=== PATIENT | male | born 1975 | race Caucasian/White ===

== ENCOUNTER 2018-11-07 16:43 | Inpatient (IN) ==
[2018-11-07 17:20] LABS: Mean Corpuscular Hemoglobin 21.8 pg (28.0-33.3); Nucleated Red Blood Cells 0.4 /100 WBC (0)
[2018-11-07 17:22] LABS: Basophils % 0.3 %; Eosinophils # 0.2 K/mcL (0.0-0.6); Eosinophils % 2.8 %; Hematocrit 36.9 % (37.5-50.1); Hemoglobin 10.9 g/dL (12.9-16.9); Immature Granulocytes % 0.3 % (0-4); Immature Platelets 3.1 % (1.1-6.1); Lymphocytes # 1.9 K/mcL (0.6-4.6); Mean Corpuscular HGB Conc 29.5 g/dL (31.6-35.5); Mean Corpuscular Volume 73.9 fL (83.0-100.0); Mean Platelet Volume 9.9 fL (9.4-12.4); Monocytes # 0.9 K/mcL (0.0-1.3); Monocytes % 12.5 %; Neutrophils # 4.1 K/mcL (1.6-8.9); Platelet Count 246 K/mcL (140-400); Red Blood Count 4.99 M/mcL (4.19-5.50); Segmented Neutrophils % 57.1 %
[2018-11-07] MEDS ORDERED: Ondansetron 4 MG/2 ML VIAL IVP ONE (17:28)
[2018-11-07] MEDS ORDERED: *HR* HYDROmorphone (PF) 1 MG/ML SYRINGE IVP ONE ×2 (17:28→23:43)
--- NOTE | 2018-11-07 17:34 | Emergency Department Note ---
Disposition Clinical Impression: Infected surgical wound Disposition: Still a Patient Condition: Fair Referrals: Ava Savage CNP [Primary Care Provider] - Forms: ED Satisfaction Letter, Work/School Release General Adult HPI - General Chief complaint: ED General Medical Stated complaint: infected Surg. Site Time Seen by Provider: 11/07/18 16:50 Source: patient Mode of arrival: ambulatory Limitations: no limitations - History of Present Illness HPI Narrative: Skylar Jeronimo is a 43 y/o male presenting for infection of surgical site. He has a past medical history of pulmonary embolus after surgery 8 months ago is currently on Coumadin, hypertension, hyperlipidemia, PTSD, low testosterone and diverticulitis currently on second week of Cipro and Flagyl. 8 days ago the patient's left lower extremity was cut by a piece of sheet metal. At that time he presented to [facility] and the wound was irrigated, sutured, and he was given a tetanus shot. Yesterday the patient began to have increasing pain as well as erythema around the wound. He has been taking Tylenol which helped at first, but is now not having affect. The patient states that the pain is circumferential around his calf, rated 6 out of 10 and ranges from several inches above the wound down to the toes. The pain is described as aching and stabbing and worsened with walking. It is longer alleviated by anything. The patient also admits to nausea, as well as abdominal pain and diarrhea from the diverticulitis. He denies fever, chills, vision changes, hearing changes, syncope, chest pain, shortness of breath, constipation, dysuria, joint pain. Pain Scale: 6 - Related Data Home Medications Medication Instructions Recorded Confirmed Abdek Multivitamin Softgel 11/07/18 Bystolic 11/07/18 Cipro 11/07/18 Fenofibrate 11/07/18 Flagyl 11/07/18 Klonopin 11/07/18 Rexulti 11/07/18 Vitamin D 11/07/18 Allergies Allergy/AdvReac Type Severity Reaction Status Date / Time trazodone AdvReac Shakiness Verified 11/07/18 15:43 Review of Systems: As Per HPI Constitutional: Denies: fever, chills, weakness, weight change Eyes: Denies: eye pain, vision change ENT ED: Denies: ear pain, hearing loss, congestion Cardiovascular: Denies: chest pain, palpitations, dyspnea on exertion, syncope Respiratory: Denies: cough, dyspnea, wheezes, hemoptysis, sputum production Gastrointestinal: Reports: abdominal pain, nausea, diarrhea. Denies: vomiting, constipation, hematemesis, melena, hematochezia Genitourinary: Denies: urgency, dysuria, frequency, hematuria Musculoskeletal: Denies: back pain, neck pain, joint swelling Integumentary: Reports: lesions. Denies: rash, abrasion Neurological: Denies: headache, weakness, numbness, paresthesias, confusion, abnormal gait Psychiatric: Denies: anxiety, depression Endocrine: Denies: fatigue, heat or cold intolerance Hematological/Lymphatic: Reports: easy bleeding. Denies: easy bruising Allergic/Immunologic: Denies: facial swelling, urticaria Past Medical History - Past Medical History Medical history: Reports: hypertension Psychiatric history: Reports: PTSD - Social History Smoking Status: Never smoker Smokeless Tobacco Status: No Alcohol use: Reports: rarely Drug use: Reports: none Physical Exam Gen.: Vitals noted. Moderate distress, diaphoretic. AAOx3, resting comfortably in bed. HEENT: PERRL/EOMI, oropharynx clear, Normocephalic, atraumatic, MMM Neck: Supple. No adenopathy. No thyroid nodules. Trachea midline. Cardiac: RRR, no murmur, +S1/S2, Left leg edematous to dorsum of foot, no edema of right leg. Radial, dorsal pedis and posterior tibial pulses 3+ and symmetrical. Capillary refill < 2 seconds Pulmonary: CTA bilaterally, no wheezes, rales or rhonchi, equal chest expansion, unlabored breathing Abdomen: soft, nontender, BS noted, no guarding, no palpable HSM Back: Nontender throughout. Skin: warm and dry, 4 inch wound, sutured, on left medial calf. Erythematous, firm, draining serosanguinous fluid, no crepitus or fluctuance present. Exquisitely tender to palpation. MSK: ROM intact, no joint swelling noted, gait no assessed while in bed. Non tender calf or clubbing Neuro: A&Ox3, moves all extremities, no focal deficits, sensation intact, CN2-12 intact Psych: Appropriate mood and behavior, AOx3 - General Limitations: no limitations General appearance: alert, in no apparent distress Course Course Narrative: Patient seen and examined at bedside, discussed PMH and history of present illness. Patient appears to have a left lower extremity infection of 4 inch medial calf wound, sustained after a piece of sheet metal cut his leg. Patient is on Coumadin for history of pulmonary embolism, when he sustained the wound he was having trouble difficulty controlling the bleeding. Patient states his bleeding did not stop until the emergency department at [facility] finished suturing the wound close. Patient is currently on antibiotics of ciprofloxacin and Flagyl however this is not adequate coverage for skin infection. Concern for cellulitis versus osteomyelitis. Patient has failed outpatient treatment of this wound. Patient states that she is unable to take NSAIDs because he has bad kidneys. For nausea patient became and 4 mg of Zofran as well as 0.5 mg of Dilaudid for pain. We will do BMP, CBC, CRP, ESR, lactic acid. Would like to do IV contrast CT scan of the left lower extremity, pending renal function on labs to determine if IV contrast can be used. Patient has elevated ESR at 30, no lactic acidosis, normal CRP, and is anemic, Hgb 10.9 on CBC. He has decreased renal function, his BUN is 16, creatinine 1.37 and GFR 57. No prior labs at [facility] so unable to determine renal baseline however the patient did state that he has a history of poor renal function and cannot take NSAIDs. CT left lower extremity remains pending. Patient has been signed out to Dr. Patel and Dr. Daly. CT of left lower extremity remains pending. Vital Signs Temperature 98.0 F 11/07/18 16:50 Pulse Rate 106 11/07/18 16:50 Respiratory Rate 18 11/07/18 16:50 Blood Pressure 154/105 11/07/18 16:50 O2 Sat by Pulse Oximetry 97 11/07/18 16:50 Temperature 98.0 F 11/07/18 16:50 Pulse Rate 106 11/07/18 16:50 Respiratory Rate 18 11/07/18 16:50 Blood Pressure 154/105 11/07/18 16:50 O2 Sat by Pulse Oximetry 97 11/07/18 16:50 Oxygen Delivery Oxygen Delivery Room Air Medical Decision Making - Medical Records Medical records reviewed: Yes I reviewed the patient's medical records. - Lab Data Lab results reviewed: Yes I reviewed the patient's lab results. Result diagrams: 11/07/18 17:09 11/07/18 17:09 Lab Results 11/07/18 11/07/18 11/07/18 Range/Units 17:09 17:09 17:09 WBC 7.1 (4.3-11.1) K/mcL RBC 4.99 (4.19-5.50) M/mcL Hgb 10.9 L (12.9-16.9) g/dL Hct 36.9 L (37.5-50.1) % MCV 73.9 L (83.0-100.0) fL MCH 21.8 L (28.0-33.3) pg MCHC 29.5 L (31.6-35.5) g/dL RDW 18.0 H (11.5-14.5) % Plt Count 246 (140-400) K/mcL MPV 9.9 (9.4-12.4) fL Immature Gran % 0.3 (0-4) % Seg Neutrophils % 57.1 % Lymphocytes % 27.0 % Monocytes % 12.5 % Eosinophils % 2.8 % Basophils % 0.3 % Neutrophils # 4.1 (1.6-8.9) K/mcL Lymphocytes # 1.9 (0.6-4.6) K/mcL Monocytes # 0.9 (0.0-1.3) K/mcL Eosinophils # 0.2 (0.0-0.6) K/mcL Basophils # 0.0 (0.0-0.2) K/mcL Nucleated RBCs/100 WBC 0.4 H (0) /100 WBC Immature Plt Fraction 3.1 (1.1-6.1) % Hypochromasia Present A (Not Present) ESR 30 H (0-10) mm/hr Sodium 136 (136-145) mEq/L Potassium 4.2 (3.5-5.1) mEq/L Chloride 108 H (98-107) mEq/L Carbon Dioxide 22 L (23-29) mEq/L BUN 16 (6-20) mg/dL Creatinine 1.37 H (0.70-1.30) mg/dL Est GFR ( Amer) > 60 (> 60) Est GFR (Non-Af Amer) 57 L (> 60) BUN/Creatinine Ratio 12 (6-26) Glucose 115 H (70-105) mg/dL Calculated Osmolality 284 (280-300) Lactic Acid (0.5-2.2) mmol/L Calcium 9.0 (8.6-10.3) mg/dL C-Reactive Protein 6 (Less than 10) mg/L 11/07/18 Range/Units 17:09 WBC (4.3-11.1) K/mcL RBC (4.19-5.50) M/mcL Hgb (12.9-16.9) g/dL Hct (37.5-50.1) % MCV (83.0-100.0) fL MCH (28.0-33.3) pg MCHC (31.6-35.5) g/dL RDW (11.5-14.5) % Plt Count (140-400) K/mcL MPV (9.4-12.4) fL Immature Gran % (0-4) % Seg Neutrophils % % Lymphocytes % % Monocytes % % Eosinophils % % Basophils % % Neutrophils # (1.6-8.9) K/mcL Lymphocytes # (0.6-4.6) K/mcL Monocytes # (0.0-1.3) K/mcL Eosinophils # (0.0-0.6) K/mcL Basophils # (0.0-0.2) K/mcL Nucleated RBCs/100 WBC (0) /100 WBC Immature Plt Fraction (1.1-6.1) % Hypochromasia (Not Present) ESR (0-10) mm/hr Sodium (136-145) mEq/L Potassium (3.5-5.1) mEq/L Chloride (98-107) mEq/L Carbon Dioxide (23-29) mEq/L BUN (6-20) mg/dL Creatinine (0.70-1.30) mg/dL Est GFR ( Amer) (> 60) Est GFR (Non-Af Amer) (> 60) BUN/Creatinine Ratio (6-26) Glucose (70-105) mg/dL Calculated Osmolality (280-300) Lactic Acid 1.2 (0.5-2.2) mmol/L Calcium (8.6-10.3) mg/dL C-Reactive Protein (Less than 10) mg/L S.B.A.R. - S.B.A.R. Situation: Demographics, MOA Background: Presenting Complaint, Relevant PMH, Meds, & Allergies Assessment: Vital Signs, Course and respsone to treatment, Exam Concerns, Patient/Family Expectation, Pertinant Lab Results, Outstanding Labs S.B.A.R. Report Given to: Dr. Addy Cohen Repor Time: 19:00 Attestation Statement - Attestation Attestation: I, Alex Vergara, examined this patient and my medical decision-making was reviewed with the OYSTER FISHERMAN/PA/Advanced Practice Nurse/Resident Physician. I agree with the documented findings, disposition and treatment plan as described except to the extent set forth below. 43-year-old male presents emergency Department with concerns of pain to the left lower calf. Patient states a piece of metal cut his calf which bled profusely. He was seen at a local emergency department who sutured the lower extremity. Patient states since that time he has had severe pain however it worsened today and it started draining purulent material. Patient has pulses in the bilateral lower extremity. He denies fever, chills, nausea, vomiting, diarrhea, chest pain, shortness of breath. We will obtain CT of the lower extremity to rule out deep abscess. Imaging is pending at this time. Patient care will be transferred to Dr. Patel pending CT of the lower extremity and reevaluation.
[2018-11-07 17:48] LABS: Hypochromasia Present (Not Present)
[2018-11-07 17:50] LABS: BUN/Creatinine Ratio 12 (6-26); Blood Urea Nitrogen 16 mg/dL (6-20); C-Reactive Protein 6 mg/L (Less than 10); Carbon Dioxide 22 mEq/L (23-29); Chloride 108 mEq/L (98-107); Glucose 115 mg/dL (70-105); Osmolality,Calculated 284 (280-300); Potassium 4.2 mEq/L (3.5-5.1); Sodium 136 mEq/L (136-145); eGFR For Non-African Americans 57 (> 60)
[2018-11-07] MEDS ORDERED: Isovue-370 500 ML BOTTLE IVP ONE (17:52)
--- NOTE | 2018-11-07 18:58 | Emergency Department Note ---
Disposition Clinical Impression: Infected surgical wound Disposition: Still a Patient Referrals: Ava Savage CNP [Primary Care Provider] - Forms: ED Satisfaction Letter, Work/School Release General Adult HPI - General Chief complaint: ED General Medical Stated complaint: infected Surg. Site Time Seen by Provider: 11/07/18 16:50 Source: patient Mode of arrival: ambulatory Limitations: no limitations Nursing Notes Reviewed: Yes Vital Signs Reviewed: Yes - History of Present Illness HPI Narrative: ED ATTESTATION NOTE: I examined this patient and my medical decision-making was reviewed with the Resident Physician/TRUCK DRIVER RUBBISH COLLECTOR/PA/Student. I have personally performed a face to face evaluation on this patient & I agree with the documented findings, disposition and treatment plan as described except to the extent set forth below. Patient was seen with emergency medicine resident Dr. LEXX TATUM please see copy of his note for details of this encounter Briefly: Patient signed out by the departing ED attending and resident Dr. Wanda GONZALES, & DR. VIRGEN. Patient had a laceration to his calf physician outside ER 6 days ago comes in with increasing pain. White count is labs within normal limits CT scan is pending to rule out possibility of deep space tissue infection or abscess. Understanding is if the CT is otherwise negative for discharge home perhaps changing history some antibiotics to Augmentin. Disposition pending. Pain Scale: 6 - Related Data Home Medications Medication Instructions Recorded Confirmed Abdek Multivitamin Softgel 11/07/18 Bystolic 11/07/18 Cipro 11/07/18 Fenofibrate 11/07/18 Flagyl 11/07/18 Klonopin 11/07/18 Rexulti 11/07/18 Vitamin D 11/07/18 Allergies Allergy/AdvReac Type Severity Reaction Status Date / Time trazodone AdvReac Shakiness Verified 11/07/18 15:43 Constitutional: Denies: fever, chills, weakness, weight change Eyes: Denies: eye pain, vision change ENT ED: Denies: ear pain, hearing loss, congestion Cardiovascular: Denies: chest pain, palpitations, dyspnea on exertion, syncope Respiratory: Denies: cough, dyspnea, wheezes, hemoptysis, sputum production Gastrointestinal: Reports: abdominal pain, nausea, diarrhea. Denies: vomiting, constipation, hematemesis, melena, hematochezia Genitourinary: Denies: urgency, dysuria, frequency, hematuria Musculoskeletal: Denies: back pain, neck pain, joint swelling Integumentary: Reports: lesions. Denies: rash, abrasion Neurological: Denies: headache, weakness, numbness, paresthesias, confusion, a bnormal gait Psychiatric: Denies: anxiety, depression Endocrine: Denies: fatigue, heat or cold intolerance Hematological/Lymphatic: Reports: easy bleeding. Denies: easy bruising Allergic/Immunologic: Denies: facial swelling, urticaria Past Medical History - Past Medical History Medical history: Reports: hypertension Psychiatric history: Reports: PTSD - Social History Smoking Status: Never smoker Smokeless Tobacco Status: No Alcohol use: Reports: rarely Drug use: Reports: none Physical Exam - General Limitations: no limitations General appearance: alert, in no apparent distress Course Vital Signs Temperature 98.0 F 11/07/18 16:50 Pulse Rate 106 11/07/18 16:50 Respiratory Rate 18 11/07/18 16:50 Blood Pressure 154/105 11/07/18 16:50 O2 Sat by Pulse Oximetry 97 11/07/18 16:50 Temperature 98.0 F 11/07/18 16:50 Pulse Rate 106 11/07/18 16:50 Respiratory Rate 18 11/07/18 16:50 Blood Pressure 154/105 11/07/18 16:50 O2 Sat by Pulse Oximetry 97 11/07/18 16:50 Oxygen Delivery Oxygen Delivery Room Air Medical Decision Making - Lab Data Result diagrams: 11/07/18 17:09 11/07/18 17:09 Lab Results 11/07/18 11/07/18 11/07/18 Range/Units 17:09 17:09 17:09 WBC 7.1 (4.3-11.1) K/mcL RBC 4.99 (4.19-5.50) M/mcL Hgb 10.9 L (12.9-16.9) g/dL Hct 36.9 L (37.5-50.1) % MCV 73.9 L (83.0-100.0) fL MCH 21.8 L (28.0-33.3) pg MCHC 29.5 L (31.6-35.5) g/dL RDW 18.0 H (11.5-14.5) % Plt Count 246 (140-400) K/mcL MPV 9.9 (9.4-12.4) fL Immature Gran % 0.3 (0-4) % Seg Neutrophils % 57.1 % Lymphocytes % 27.0 % Monocytes % 12.5 % Eosinophils % 2.8 % Basophils % 0.3 % Neutrophils # 4.1 (1.6-8.9) K/mcL Lymphocytes # 1.9 (0.6-4.6) K/mcL Monocytes # 0.9 (0.0-1.3) K/mcL Eosinophils # 0.2 (0.0-0.6) K/mcL Basophils # 0.0 (0.0-0.2) K/mcL Nucleated RBCs/100 WBC 0.4 H (0) /100 WBC Immature Plt Fraction 3.1 (1.1-6.1) % Hypochromasia Present A (Not Present) ESR 30 H (0-10) mm/hr Sodium 136 (136-145) mEq/L Potassium 4.2 (3.5-5.1) mEq/L Chloride 108 H (98-107) mEq/L Carbon Dioxide 22 L (23-29) mEq/L BUN 16 (6-20) mg/dL Creatinine 1.37 H (0.70-1.30) mg/dL Est GFR ( Amer) > 60 (> 60) Est GFR (Non-Af Amer) 57 L (> 60) BUN/Creatinine Ratio 12 (6-26) Glucose 115 H (70-105) mg/dL Calculated Osmolality 284 (280-300) Lactic Acid (0.5-2.2) mmol/L Calcium 9.0 (8.6-10.3) mg/dL C-Reactive Protein 6 (Less than 10) mg/L 11/07/18 Range/Units 17:09 WBC (4.3-11.1) K/mcL RBC (4.19-5.50) M/mcL Hgb (12.9-16.9) g/dL Hct (37.5-50.1) % MCV (83.0-100.0) fL MCH (28.0-33.3) pg MCHC (31.6-35.5) g/dL RDW (11.5-14.5) % Plt Count (140-400) K/mcL MPV (9.4-12.4) fL Immature Gran % (0-4) % Seg Neutrophils % % Lymphocytes % % Monocytes % % Eosinophils % % Basophils % % Neutrophils # (1.6-8.9) K/mcL Lymphocytes # (0.6-4.6) K/mcL Monocytes # (0.0-1.3) K/mcL Eosinophils # (0.0-0.6) K/mcL Basophils # (0.0-0.2) K/mcL Nucleated RBCs/100 WBC (0) /100 WBC Immature Plt Fraction (1.1-6.1) % Hypochromasia (Not Present) ESR (0-10) mm/hr Sodium (136-145) mEq/L Potassium (3.5-5.1) mEq/L Chloride (98-107) mEq/L Carbon Dioxide (23-29) mEq/L BUN (6-20) mg/dL Creatinine (0.70-1.30) mg/dL Est GFR ( Amer) (> 60) Est GFR (Non-Af Amer) (> 60) BUN/Creatinine Ratio (6-26) Glucose (70-105) mg/dL Calculated Osmolality (280-300) Lactic Acid 1.2 (0.5-2.2) mmol/L Calcium (8.6-10.3) mg/dL C-Reactive Protein (Less than 10) mg/L
[2018-11-07] MEDS ORDERED: Lidocaine -MPF 1% 5 ML AMPUL INFILT ONE (20:37)
[2018-11-07 20:40] LABS: INR 2.8; Prothrombin Time 31.1 Seconds (9.4-12.1)
--- NOTE | 2018-11-07 20:46 | Emergency Department Note ---
Disposition Clinical Impression: Infected surgical wound Disposition: Admitted As Inpatient Condition: Good Referrals: Ava Savage [employer] HEAR[employer] STOCKYARD SUPERVISOR [Primary Care Provider] - Forms: ED Satisfaction Letter, Work/School Release General Adult HPI - General Chief complaint: ED General Medical Stated complaint: infected Surg. Site Time Seen by Provider: 11/07/18 16:50 Source: patient Mode of arrival: ambulatory Limitations: no limitations - History of Present Illness Pain Scale: 6 - Related Data Home Medications Medication Instructions Recorded Confirmed Abdek Multivitamin Softgel 11/07/18 Bystolic 11/07/18 Cipro 11/07/18 Fenofibrate 11/07/18 Flagyl 11/07/18 Klonopin 11/07/18 Rexulti 11/07/18 Vitamin D 11/07/18 Allergies Allergy/AdvReac Type Severity Reaction Status Date / Time trazodone AdvReac Shakiness Verified 11/07/18 15:43 Constitutional: Denies: fever, chills, weakness, weight change Eyes: Denies: eye pain, vision change ENT ED: Denies: ear pain, hearing loss, congestion Cardiovascular: Denies: chest pain, palpitations, dyspnea on exertion, syncope Respiratory: Denies: cough, dyspnea, wheezes, hemoptysis, sputum production Gastrointestinal: Reports: abdominal pain, nausea, diarrhea. Denies: vomiting, constipation, hematemesis, melena, hematochezia Genitourinary: Denies: urgency, dysuria, frequency, hematuria Musculoskeletal: Denies: back pain, neck pain, joint swelling Integumentary: Reports: lesions. Denies: rash, abrasion Neurological: Denies: headache, weakness, numbness, paresthesias, confusion, abnormal gait Psychiatric: Denies: anxiety, depression Endocrine: Denies: fatigue, heat or cold intolerance Hematological/Lymphatic: Reports: easy bleeding. Denies: easy bruising Allergic/Immunologic: Denies: facial swelling, urticaria Past Medical History - Past Medical History Medical history: Reports: hypertension Psychiatric history: Reports: PTSD - Social History Smoking Status: Never smoker Smokeless Tobacco Status: No Alcohol use: Reports: rarely Drug use: Reports: none Physical Exam - General Limitations: no limitations General appearance: alert, in no apparent distress Course - Consultations Consultation #1: Discussed case with the on-call orthopedic surgeon. He agrees that the patient is to be admitted. He would like me to discuss with general surgery first for management. Consultation #2: I spoke with the on-call surgeon Dr. Trent. He reviewed the imaging personally. Requested that we remove the 2 most medial sutures and obtain wound cultures of possible. Admitted to the hospitalist and they will see in consulta tion. Vital Signs Temperature 98.0 F 11/07/18 16:50 Pulse Rate 106 11/07/18 16:50 Respiratory Rate 18 11/07/18 16:50 Blood Pressure 154/105 11/07/18 16:50 O2 Sat by Pulse Oximetry 97 11/07/18 16:50 Temperature 98.0 F 11/07/18 16:50 Pulse Rate 106 11/07/18 16:50 Respiratory Rate 18 11/07/18 16:50 Blood Pressure 154/105 11/07/18 16:50 O2 Sat by Pulse Oximetry 97 11/07/18 16:50 Oxygen Delivery Oxygen Delivery Room Air Procedures - Abscess I/D Site: lower extremity Side (if applicable): left Local Anesthetic: lidocaine 1% Amount of Anesthesia Used (mL): 4 Amount of fluid: 3 Irrigation: No Packing used?: none Medical Decision Making - MDM Narrative Medical decision making narrative: 43-year-old male presenting due to concern for infection over his recent wound. He is well-appearing here with what appears to be an infected incision site. CT scan concerning for abscess. Case discussed with orthopedic and general surgery. Gen. surgery consulted for management. I performed an incision and drainage with serosanguineous fluid which was collected for wound culture. Patient given vancomycin and Zosyn. Admitted to the hospitalist service. - Lab Data Lab results reviewed: Yes I reviewed the patient's lab results. Result diagrams: 11/07/18 17:09 11/07/18 17:09 Lab Results 11/07/18 11/07/18 11/07/18 Range/Units 17:09 17:09 17:09 WBC 7.1 (4.3-11.1) K/mcL RBC 4.99 (4.19-5.50) M/mcL Hgb 10.9 L (12.9-16.9) g/dL Hct 36.9 L (37.5-50.1) % MCV 73.9 L (83.0-100.0) fL MCH 21.8 L (28.0-33.3) pg MCHC 29.5 L (31.6-35.5) g/dL RDW 18.0 H (11.5-14.5) % Plt Count 246 (140-400) K/mcL MPV 9.9 (9.4-12.4) fL Immature Gran % 0.3 (0-4) % Seg Neutrophils % 57.1 % Lymphocytes % 27.0 % Monocytes % 12.5 % Eosinophils % 2.8 % Basophils % 0.3 % Neutrophils # 4.1 (1.6-8.9) K/mcL Lymphocytes # 1.9 (0.6-4.6) K/mcL Monocytes # 0.9 (0.0-1.3) K/mcL Eosinophils # 0.2 (0.0-0.6) K/mcL Basophils # 0.0 (0.0-0.2) K/mcL Nucleated RBCs/100 WBC 0.4 H (0) /100 WBC Immature Plt Fraction 3.1 (1.1-6.1) % Hypochromasia Present A (Not Present) ESR 30 H (0-10) mm/hr PT (9.4-12.1) Seconds INR Sodium 136 (136-145) mEq/L Potassium 4.2 (3.5-5.1) mEq/L Chloride 108 H (98-107) mEq/L Carbon Dioxide 22 L (23-29) mEq/L BUN 16 (6-20) mg/dL Creatinine 1.37 H (0.70-1.30) mg/dL Est GFR ( Amer) > 60 (> 60) Est GFR (Non-Af Amer) 57 L (> 60) BUN/Creatinine Ratio 12 (6-26) Glucose 115 H (70-105) mg/dL Calculated Osmolality 284 (280-300) Lactic Acid (0.5-2.2) mmol/L Calcium 9.0 (8.6-10.3) mg/dL C-Reactive Protein 6 (Less than 10) mg/L 11/07/18 11/07/18 Range/Units 17:09 20:18 WBC (4.3-11.1) K/mcL RBC (4.19-5.50) M/mcL Hgb (12.9-16.9) g/dL Hct (37.5-50.1) % MCV (83.0-100.0) fL MCH (28.0-33.3) pg MCHC (31.6-35.5) g/dL RDW (11.5-14.5) % Plt Count (140-400) K/mcL MPV (9.4-12.4) fL Immature Gran % (0-4) % Seg Neutrophils % % Lymphocytes % % Monocytes % % Eosinophils % % Basophils % % Neutrophils # (1.6-8.9) K/mcL Lymphocytes # (0.6-4.6) K/mcL Monocytes # (0.0-1.3) K/mcL Eosinophils # (0.0-0.6) K/mcL Basophils # (0.0-0.2) K/mcL Nucleated RBCs/100 WBC (0) /100 WBC Immature Plt Fraction (1.1-6.1) % Hypochromasia (Not Present) ESR (0-10) mm/hr PT 31.1 H (9.4-12.1) Seconds INR 2.8 Sodium (136-145) mEq/L Potassium (3.5-5.1) mEq/L Chloride (98-107) mEq/L Carbon Dioxide (23-29) mEq/L BUN (6-20) mg/dL Creatinine (0.70-1.30) mg/dL Est GFR ( Amer) (> 60) Est GFR (Non-Af Amer) (> 60) BUN/Creatinine Ratio (6-26) Glucose (70-105) mg/dL Calculated Osmolality (280-300) Lactic Acid 1.2 (0.5-2.2) mmol/L Calcium (8.6-10.3) mg/dL C-Reactive Protein (Less than 10) mg/L - Radiology Data Radiology results reviewed: Yes I reviewed the patient's radiology results. Lower Extremity CT 11/07/18 17:52 IMPRESSION: 1. Subcutaneous edema throughout the image soft tissues. Correlate clinically for cellulitis. There also superficial soft tissue irregularity along the posteromedial aspect of the lower extremity which may reflect soft tissue ulceration. Correlate clinically. 2. There is a rim enhancing complex collection which is closely associated with the medial head of the gastrocnemius which measures 1.8 x 2.3 x 2.6 cm. Findings highly suspicious for abscess given patient history. 3. No acute osseous abnormality identified. D/ / Gennaro Isaac MD / Gennaro Isaac MD Interpreting Provider: Gennaro Isaac MD ohn - Samantha Situation: Demographics, MOA Background: Presenting Complaint, Relevant PMH, Meds, & Allergies Assessment: Vital Signs, Course and respsone to treatment, Exam Concerns, Patient/Family Expectation, Pertinant Lab Results Recommendation: Barrier(s) to disposition, Recommendation based on pending studies, treatments, or consults SJohn Report Given to: Dr London Singh Repor Time: 21:18
[2018-11-07] MEDS ORDERED: *HR* HYDROmorphone (PF) 1 MG/ML SYRINGE ONE (20:57)
[2018-11-07] MEDS ORDERED: Piperacillin/Tazobactam 3.375 GM in Water for inj. (sterile) 20 ML 20 ML IVP ONE (21:16)
[2018-11-08] MEDS ORDERED: Naloxone 0.4 MG/ML INJ IVP PRN (00:37)
[2018-11-08] MEDS ORDERED: *HR* OxyCODONE Immed Rel 5 MG TABLET PO PRN ×2 (00:37→09:33)
[2018-11-08] MEDS ORDERED: Acetaminophen 325 MG TABLET PO PRN (00:37)
[2018-11-08] MEDS: 0.9 % Sodium Chloride 1,000 ML IVC SCH ×2 (01:04→13:30)
[2018-11-08] MEDS: traMADol 50 MG TABLET PO PRN ×3 (01:04→21:20)
--- NOTE | 2018-11-08 01:13 | Internal Med History&Physical ---
Date of Encounter: 11/07/18 Time of Encounter: 22:45 Internal Medicine - H&P: HPI Chief complaint: left leg infection/injury Admitted From: Emergency Dept Plans for Post Hospital Care: Home History of present illness: Mr. Jeronimo is a 43 year old male who presents to the ER with complaints of left leg pain, swelling, and possible infection. He sustained an injury to his left leg about 8 days ago while he was working on a pole born at home. 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 He went to local ER/urgent care where he was urgently treated and had sutures placed to help control bleeding. Since then, he has had worsening pain, swelling, redness, and some subjective fevers. He came to ER today for concerns of infection as he was unable to bear weight and walk much without intense pain. Work up in ER revealed the patient to have possible abscess in his gastrocnemius muscle on CT imaging. ER contacted orthopedics who referred patient and care to general surgery. Dr. Trent was notified and discussed the case with the ER staff. He recommended admission to hospitalist service, and he would see patient in consultation for possible incision and drainage. Patient was then admitted to hospitalist service. Upon my assessment of the patient in ER, patient confirms above history. Of not e, he is on Coumadin for recent diagnosis of pulmonary embolus about 5 months ago. He denies any prior history of DVT or PE. When this injury occurred 8 days ago, he did have significant bleeding which was controlled by tourniquet he placed himself and then pressure dressing and laceration repair in the ER. His had no further bleeding since then. Of note, patient also has been on Flagyl and Cipro recently for treatment of acute diverticulitis as an outpatient. Overall, GI symptoms have improved but he still had some loose stool and occasional painful defecation. Past Med Surg Social Fam HX - Past Medical History Attestation: Yes The following information was validated with the patient. Source: patient, other (ER notes) Medical history: hypertension Psychiatric history: PTSD - Past Surgical History Surgical History: orthopedic, other Additional surgical history: Rt. shoulder, Rt. bicep, left leg, left testicle, Bilateral hand sx - Social History Smoking Status: Never smoker Smokeless Tobacco Status: No Alcohol use: rarely Drug use: none Current living situation: Home, With Family Activity Level: Independent ambulation Recent Out of Country Travel Within the Last 8 Weeks: No - Family History Father Hx Family Cardiac Disorders: Yes (HTN) Hx Family Endocrine Disorder: Yes (DM) Mother Hx Family Cardiac Disorders: Yes (HTN) Internal Medicine - H&P: Meds Abdek Multivitamin Softgel 11/07/18 [History] Bystolic 5 mg BID 11/07/18 [History] Cipro 11/07/18 [History] Coumadin 11/07/18 [History] Fenofibrate 11/07/18 [History] Flagyl 11/07/18 [History] Klonopin 3 mg DAILY 11/07/18 [History] Rexulti 4 mg DAILY 11/07/18 [History] Trintellix 20 mg DAILY 11/07/18 [History] Vitamin D 11/07/18 [History] Allergy/AdvReac Type Severity Reaction Status Date / Time trazodone AdvReac Shakiness Verified 11/07/18 15:43 - Constitutional Constitutional: chills, fever(s), no night sweats - EENT Eyes: no blurry vision, no change in vision Ears: no ear pain, no tinnitus Nose, mouth and throat: no nasal congestion, no sore throat - Cardiovascular Cardiovascular ROS IM: no chest pain, no dyspnea, no dyspnea on exertion - Respiratory Respiratory: no cough, no pain on inspiration, no chest congestion, no excessive phlegm production, no change in phlegm color - Gastrointestinal Gastrointestinal: no abdominal pain, no diarrhea, no hematemesis, no hematoche akhil, no melena, no nausea, no vomiting - Genitourinary Genitourinary ROS male: no dysuria, no flank pain, no hematuria - Musculoskeletal Musculoskeletal ROS IM: myalgias, other (pain, swelling, painful ambulation left leg), no arthralgias, no back pain - Integumentary Integumentary IM: no rash, no jaundice - Neurological Neurological ROS: no dizziness, no focal weakness, no frequent falls, no headache(s), no numbness, no paresthesias - Psychiatric Psychiatric: anxiety, depression - Endocrine Endocrine IM: no polydipsia, no polyuria - Hematologic/Lymphatic Hematologic/Lymphatic: easy bruising - Allergic/Immunologic Allergic/Immunologic: no GI upset with certain foods - Constitutional Vitals: Temp Pulse Resp BP Pulse Ox 97.9 F 85 16 162/111 97 11/07/18 23:46 11/07/18 23:46 11/07/18 23:46 11/07/18 23:46 11/07/18 23:46 General appearance: Present: cooperative, A&O X 3, pleasant, no acute distress, answers questions appropriately Exam: see below - Head Head exam: Present: atraumatic, normal inspection - Eye Eye exam: Present: EOMI, PERRL. Absent: scleral icterus Pupils: Present: normal accommodation - ENT ENT exam: Present: mucous membranes dry, normal exam, normal oropharynx - Neck Neck exam general surgery: Present: full ROM, supple. Absent: tenderness, nuchal rigidity, thyromegaly - Respiratory Respiratory exam: Present: CTAB. Absent: chest wall tenderness, rales, rhonchi, wheezes - Cardiovascular Cardiovascular exam: Present: RRR, +S1, +S2. Absent: diastolic murmur, systolic murmur - GI/Abdominal GI/Abdominal exam: Present: normal bowel sounds, soft. Absent: guarding, hepatomegaly, mass, rebound, splenomegaly, tenderness - Extremities Exam Extremities exam: Present: calf tenderness (left calf/lower leg -- wound wrapped and dressed), full ROM, normal capillary refill, tenderness, warm, radial puls es palpable and symmetrical. Absent: joint swelling - Back Exam Back exam: Absent: CVA tenderness (L), CVA tenderness (R) - Neurological Exam Neurological exam: Present: alert, CN II-XII intact, oriented X3, no focal defi cits, strengths equal and symetr throughout - Psychiatric Psychiatric exam: Present: normal affect, normal mood - Skin Skin exam: Present: dry, intact, warm Internal Med - H&P Results - Labs CBC & Chem 7: 11/07/18 17:09 11/07/18 17:09 Labs: Short CBC 11/07/18 Range/Units 17:09 WBC 7.1 (4.3-11.1) K/mcL Hgb 10.9 L (12.9-16.9) g/dL Hct 36.9 L (37.5-50.1) % Plt Count 246 (140-400) K/mcL Neutrophils # 4.1 (1.6-8.9) K/mcL BMP 11/07/18 17:09 Sodium 136 Potassium 4.2 Chloride 108 H Carbon Dioxide 22 L BUN 16 Creatinine 1.37 H Glucose 115 H Calcium 9.0 - Impressions ITS Impressions Lower Extremity CT 11/07/18 17:52 IMPRESSION: 1. Subcutaneous edema throughout the image soft tissues. Correlate clinically for cellulitis. There also superficial soft tissue irregularity along the posteromedial aspect of the lower extremity which may reflect soft tissue ulceration. Correlate clinically. 2. There is a rim enhancing complex collection which is closely associated with the medial head of the gastrocnemius which measures 1.8 x 2.3 x 2.6 cm. Findings highly suspicious for abscess given patient history. 3. No acute osseous abnormality identified. D/ / Gennaro Isaac MD / Gennaro Isaac MD Interpreting Provider: Gennaro Isaac MD - Diagnostic Studies Other Images Status: image reviewed by me (CT LLE -- report reviewed as well -- concern for abscess;SQ edema) - Assessment and plan (1) Abscess of left lower extremity Current Visit: Yes Status: Acute Assessment and plan: 1. Wound culture obtained in ER. 2. Surgery consulted through ER -- Dr. Trent. 3. Will continue Vancomycin, Zosyn, and Flagyl. 4. Monitor clinically; Patient will likely need I&D. (2) Pulmonary embolism Current Visit: Yes Status: Chronic Assessment and plan: 1. Currently on Coumadin and INR therapeutic. 2. Coumadin dosing per pharmacy. 3. May need to hold Coumadin and bridge with heparin if he needs OR vs bedside I&D. 4. No Coumadin given tonight; plan to resume tomorrow but recommend discussing with Dr. Ramirez and pharmacy regarding possible invasive surgical intervention before dosing Coumadin tomorrow. Qualifiers: Pulmonary embolism type: unspecified Chronicity: chronic Acute cor pulmonale presence: without acute cor pulmonale Qualified Code(s): I27.82 - Chronic pulmonary embolism (3) Diverticulitis Current Visit: Yes Status: Acute Assessment and plan: 1. Resolving clinically. 2. Patient tolerating regular diet. 3. Will continue IV antibiotics as above to cover both GI and skin shira. 4. Monitor clinically. (4) DVT prophylaxis Current Visit: Yes Status: Acute Assessment and plan: 1. Currently therapeutic on Coumadin. 2. Dosing per pharmacy. 3. May need heparin bridge if he requires surgery.
[2018-11-08 01:30] LABS: Basophils % 0.4 %; Hemoglobin 10.5 g/dL (12.9-16.9)
[2018-11-08 01:32] LABS: Eosinophils # 0.2 K/mcL (0.0-0.6); Eosinophils % 3.1 %; Hematocrit 36.4 % (37.5-50.1); Immature Granulocytes % 0.6 % (0-4); Immature Platelets 3.1 % (1.1-6.1); Lymphocytes # 1.9 K/mcL (0.6-4.6); Lymphocytes % 27.3 %; Mean Corpuscular HGB Conc 28.8 g/dL (31.6-35.5); Mean Corpuscular Hemoglobin 21.6 pg (28.0-33.3); Mean Corpuscular Volume 74.9 fL (83.0-100.0); Mean Platelet Volume 10.5 fL (9.4-12.4); Monocytes # 0.7 K/mcL (0.0-1.3); Monocytes % 10.1 %; Nucleated Red Blood Cells 0.3 /100 WBC (0); Platelet Count 219 K/mcL (140-400); Red Blood Count 4.86 M/mcL (4.19-5.50); Red Cell Distribution Width 18.1 % (11.5-14.5); Segmented Neutrophils % 58.5 %
[2018-11-08 01:39] LABS: INR 2.9; Prothrombin Time 32.9 Seconds (9.4-12.1)
[2018-11-08 01:41] LABS: Alanine Aminotransferase 27 Units/L (7-52); Albumin 3.7 g/dL (3.5-5.7); Albumin/Globulin Ratio 1.3 (1.1-2.2); Alkaline Phosphatase 46 Units/L (34-104); Aspartate Amino Transferase 48 Units/L (13-39); BUN/Creatinine Ratio 10 (6-26); Bilirubin,Total 0.4 mg/dL (0.3-1.0); Blood Urea Nitrogen 15 mg/dL (6-20); Calcium 8.4 mg/dL (8.6-10.3); Carbon Dioxide 24 mEq/L (23-29); Chloride 107 mEq/L (98-107); Globulin 2.9 g/dL (2.4-3.5); Glucose 137 mg/dL (70-105); Magnesium 2.1 mg/dL (1.6-2.6); Osmolality,Calculated 287 (280-300); Potassium 4.1 mEq/L (3.5-5.1); Sodium 137 mEq/L (136-145); Total Protein 6.6 g/dL (6.4-8.9); eGFR For Non-African Americans 53 (> 60)
[2018-11-08 01:58] LABS: Anisocytosis 1+ (Not Present); Hypochromasia Present (Not Present); Stomatocytes 1+ (Not Present)
[2018-11-08 01:59] LABS: Microcytosis Present (Not Present); Platelet Estimate Normal (Normal); Polychromasia 1+ (Not Present)
[2018-11-08] MEDS ORDERED: OXYCODONE Oral CONC 10 MG/0.5 ML ORAL.SYG SL ONE ×2 (04:45→18:20)
[2018-11-08] MEDS: Piperacillin/Tazobactam 3.375 GM in 0.9 % Sodium Chloride Mini Bag 100 ML IVPB SCH ×2 (07:58→17:43)
[2018-11-08] MEDS ORDERED: MetroNIDAZOLE 500 MG/100 ML 500 MG/100 ML BAG IVPB SCH (08:00)
[2018-11-08] MEDS ORDERED: Ondansetron ODT 4 MG TAB.RAPDIS SL PRN ×2 (10:54→17:56)
--- NOTE | 2018-11-08 11:20 | General Surgery Consult Note ---
Date of Encounter: 11/08/18 Time of Encounter: 10:30 Assessment and Plan (1) Abscess of left lower extremity Current Visit: Yes Status: Acute Pt has a LLE sutured laceration that has become infected. He had 2 sutures removed and old blood and green drainage was drained. He is very tender to palpation and can hardly stand physical examination. Therefore, I recommend incision, drainage and debridement in OR with anasthesia. The procedure, risks and benefits are discussed with patient. The possible complications are for bleeding or continued infection despite drainage and debridement. Possible anasthesia complications include but, are not limited to [place], PE/DVT or stroke. Certainly, the benefits of this procedure far outweigh the potential risks. Pt understands and wishes to proceed александр. NPO until after surgery. Surgery is scheduled. (2) Pulmonary embolism Current Visit: Yes Status: Chronic Remote; 8 months ago. Will restart coumadin after I&D&D. Qualifiers: Pulmonary embolism type: unspecified Chronicity: chronic Acute cor pulmonale presence: without acute cor pulmonale Qualified Code(s): I27.82 - Chronic pulmonary embolism History of Present Illness Consult date: 11/08/18 Reason for consult: wound care (right lower leg wound infection) Requesting physician: Parminder Callahan History of present illness: This 43 y/o male presents to [facility] ED secondary to green drainage, increased pain and redness to leftt lower leg wound. He reports an injury with some sheet metal. He was seen in urgent care and the laceration was sutured. He then n oticed a large, raised area on the wound and green drainage on his dressing. He was seen again in urgent care. He was sent to [facility] ED from there. He has been admitted and started on IV abx with Zosyn and Vanco in additon to surgery consult. He denies any other problems. He denies abd pain, n or v. He is hungry. He does take coumadin for PE 8 months ago which is currently on hold. He denies CP, SOB or palpitations. He reports other left leg infections that were spontaneous, treated with I&D and longterm abx. 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 Past Med Surg Social Fam HX - Past Medical History Medical history: hypertension Psychiatric history: PTSD - Past Surgical History Surgical History: orthopedic, other Additional surgical history: Rt. shoulder, Rt. bicep, left leg, left testicle, Bilateral hand sx - Social History Smoking Status: Never smoker Smokeless Tobacco Status: No Alcohol use: rarely Drug use: none - Family History Father Hx Family Cardiac Disorders: Yes (HTN) Hx Family Endocrine Disorder: Yes (DM) Mother Hx Family Cardiac Disorders: Yes (HTN) Medications and Allergies Brexpiprazole [Rexulti] 4 mg PO DAILY 11/08/18 [History] Cholecalciferol (D-3) [Vitamin D] 5,000 unit PO DAILY 11/08/18 [History] Ciprofloxacin HCl [Cipro] 500 mg PO BID 11/08/18 [History] Fenofibrate Nanocrystallized [Fenofibrate] 160 mg PO DAILY 11/08/18 [History] Multivitamin [One Daily] 1 tab PO DAILY 11/08/18 [History] Nebivolol [Bystolic] 5 mg PO DAILY 11/08/18 [History] RX: Omeprazole [PriLOSEC] 40 mg PO DAILY 11/08/18 [History] RX: Warfarin Sodium 12.5 mg PO SUTUWEFRSA 11/08/18 [History] RX: metroNIDAZOLE [Flagyl] 500 mg PO TID 11/08/18 [History] Testosterone Cypionate [DEPO-Testosterone] 300 mg IM Q3W 11/08/18 [History] Vortioxetine Hydrobromide [Trintellix] 20 mg PO DAILY 11/08/18 [History] Warfarin Sodium 15 mg PO MOTH 11/08/18 [History] clonazePAM [Clonazepam] 1.5 mg PO BID 11/08/18 [History] Allergy/AdvReac Type Severity Reaction Status Date / Time trazodone AdvReac Shakiness Verified 11/07/18 15:43 Review of Systems All systems PM: The remainder of the systems were reviewed and are negative - Constitutional as per HPI, no anorexia, no chills, no fatigue, no fever(s), no headache(s), no malaise - EENT Nose, mouth and throat: no dry mouth, no nasal congestion, no sinus pain, no sinus pressure, no sore throat - Cardiovascular no chest pain, no dyspnea, no edema, no palpitations - Respiratory no cough, no dyspnea, no wheezing - Gastrointestinal no abdominal pain, no constipation, no diarrhea, no nausea, no vomiting - Genitourinary no dysuria, no urinary frequency - Musculoskeletal no abnormal gait, no back pain, no joint swelling, no neck pain - Integumentary as per HPI, erythema, swelling, wounds, other (green drainage from sutured wound LLE) - Neurological no confusion, no focal weakness, no headache(s), no weakness - Psychiatric no anxiety, no depression - Endocrine no fatigue - Hematologic/Lymphatic easy bleeding, easy bruising, other (on coumadin fo PE) General Surgery Exam Initial Vital Signs Temp Pulse Resp BP Pulse Ox 98.0 F 106 18 154/105 97 11/07/18 16:50 11/07/18 16:50 11/07/18 16:50 11/07/18 16:50 11/07/18 16:50 - General physical appearance well developed, well nourished, no distress - Eyes PERRL, normal ocular movement. negative: icteric - ENT normal mucosa, no congestion - Neck no masses, no lymphadectomy, no venous distension - Respiratory normal respiratory effort, clear to auscultation - Cardiovascular Cardiovascular exam: Present: RRR - Abdomen Abdomen general surgery: Present: bowel sounds present, soft, non tender - Incision Incision: Present: draining, swollen, inflamed, erythema. Absent: intact - Genitourinary Present: normal penis with no external lesions - Integumentary Integumentary general surgery: Present: other (infected sutured lac on left lower leg) - Neurologic Present: CN 2-12 grossly intact, normal coordination - Musculoskeletal Present: normal posture - Psychiatric Psychiatric general surgery: Present: A&Ox3, appropriate Exam Initial Vital Signs Temp Pulse Resp BP Pulse Ox 98.0 F 106 18 154/105 97 11/07/18 16:50 11/07/18 16:50 11/07/18 16:50 11/07/18 16:50 11/07/18 16:50 Results - Labs 11/08/18 01:09 11/08/18 01:09 Abnormal lab results Hgb 10.5 g/dL (12.9-16.9) L 11/08/18 01:09 Hct 36.4 % (37.5-50.1) L 11/08/18 01:09 MCV 74.9 fL (83.0-100.0) L 11/08/18 01:09 MCH 21.6 pg (28.0-33.3) L 11/08/18 01:09 MCHC 28.8 g/dL (31.6-35.5) L 11/08/18 01:09 RDW 18.1 % (11.5-14.5) H 11/08/18 01:09 Nucleated RBCs/100 WBC 0.3 /100 WBC (0) H 11/08/18 01:09 Polychromasia 1+ (Not Present) A 11/08/18 01:09 Hypochromasia Present (Not Present) A 11/08/18 01:09 Anisocytosis 1+ (Not Present) A 11/08/18 01:09 Microcytosis Present (Not Present) A 11/08/18 01:09 Stomatocytes 1+ (Not Present) A 11/08/18 01:09 ESR 30 mm/hr (0-10) H 11/07/18 17:09 PT 32.9 Seconds (9.4-12.1) H 11/08/18 01:09 Creatinine 1.47 mg/dL (0.70-1.30) H 11/08/18 01:09 Est GFR (Non-Af Amer) 53 (> 60) L 11/08/18 01:09 Glucose 137 mg/dL (70-105) H 11/08/18 01:09 Calcium 8.4 mg/dL (8.6-10.3) L 11/08/18 01:09 AST 48 Units/L (13-39) H 11/08/18 01:09 Diabetes panel 11/07/18 11/08/18 Range/Units 17:09 01:09 Sodium 136 137 (136-145) mEq/L Potassium 4.2 4.1 (3.5-5.1) mEq/L Chloride 108 H 107 (98-107) mEq/L Carbon Dioxide 22 L 24 (23-29) mEq/L BUN 16 15 (6-20) mg/dL Creatinine 1.37 H 1.47 H (0.70-1.30) mg/dL Glucose 115 H 137 H (70-105) mg/dL Calcium 9.0 8.4 L (8.6-10.3) mg/dL AST 48 H (13-39) Units/L ALT 27 (7-52) Units/L Alkaline Phosphatase 46 (34-104) Units/L Albumin 3.7 (3.5-5.7) g/dL Calcium panel 11/07/18 11/08/18 Range/Units 17:09 01:09 Calcium 9.0 8.4 L (8.6-10.3) mg/dL Albumin 3.7 (3.5-5.7) g/dL Pituitary panel 11/07/18 11/08/18 Range/Units 17:09 01:09 Sodium 136 137 (136-145) mEq/L Potassium 4.2 4.1 (3.5-5.1) mEq/L Chloride 108 H 107 (98-107) mEq/L Carbon Dioxide 22 L 24 (23-29) mEq/L BUN 16 15 (6-20) mg/dL Creatinine 1.37 H 1.47 H (0.70-1.30) mg/dL Glucose 115 H 137 H (70-105) mg/dL Calcium 9.0 8.4 L (8.6-10.3) mg/dL Adrenal panel 11/07/18 11/08/18 Range/Units 17:09 01:09 Sodium 136 137 (136-145) mEq/L Potassium 4.2 4.1 (3.5-5.1) mEq/L Chloride 108 H 107 (98-107) mEq/L Carbon Dioxide 22 L 24 (23-29) mEq/L BUN 16 15 (6-20) mg/dL Creatinine 1.37 H 1.47 H (0.70-1.30) mg/dL Glucose 115 H 137 H (70-105) mg/dL Calcium 9.0 8.4 L (8.6-10.3) mg/dL Total Bilirubin 0.4 (0.3-1.0) mg/dL AST 48 H (13-39) Units/L ALT 27 (7-52) Units/L Alkaline Phosphatase 46 (34-104) Units/L Albumin 3.7 (3.5-5.7) g/dL All other labs normal. Consult Discharge Plan - Plan Referrals: Ava Savage, JOSE CARLOS [Primary Care Provider] -
[2018-11-08] MEDS ORDERED: *HR* OxyCODONE Immed Rel 5 MG TABLET PO SCH (12:00)
[2018-11-08] MEDS ORDERED: clonazePAM 1 MG TABLET PO PRN ×2 (12:48→17:56)
--- NOTE | 2018-11-08 12:56 | Internal Med Progress Note ---
Hospitalist Progress Note - Encounter Date of Encounter: 11/08/18 Time of Encounter: 12:51 - Subjective Interval History: Pt with considerable pain and swelling of LLE, states it is still draining greenish pus. Some nausea with pain meds but does have appetite. No fevers today. - Exam Vitals: Temp Pulse Resp BP Pulse Ox 97.8 F 76 15 155/98 97 11/08/18 10:24 11/08/18 10:24 11/08/18 10:24 11/08/18 10:24 11/08/18 10:24 Exam: General: NAD, good eye contact, well appearing Thoracic: Normal breath sounds b/l, no wheezing or crackles Cardio: Normal S1 and S2, regular rate and rhythm, no murmurs Abdomen: Soft, nontender, nondistended, obese Extremities: Warm, well perfused. DP pulses 2+ b/l. Does have edema LLE distal to site of laceration Skin: L medial calf laceration with several stitches, with purulent drainage and surrounding erythema Neuro: Awake, fully oriented. Speech fluent - Summary of Assessment and Plan Summary of Assessment and Plan: Skylar Jeronimo is a 43 M w hx provoked PE on warfarin, HTN, HLD, anxiety, who p/w fever and LLE painful swelling and purulence at site of recent laceration, with CT showing intramuscular fluid collection, concerning for cellulitis and abscess. Cellulitis and Abscess complicating LLE laceration: - continue empiric vanc and zosyn - d/c flagyl as is unnecessary - GenSurg consult, appreciate co-management and likely to OR this afternoon for I&D - will follow up intra-op cultures PE: on warfarin for almost 8 months now - obtain records from [facility] regarding need for AC, pt states he had PE from RUE PICC which developed clot - if above is true, will simply discontinue AC ANDRE: unknown baseline, Cr here ~1.4, possibly CKD - dose adjust vanc - obtain records from [facility] as above Hyperglycemia: mild but pt is NPO today - A1c Mild microcytic anemia: - iron labs Diverticulitis: clinically resolved but still on abx course, abd soft/nt, will complete course for this with zosyn as above HTN: home bystolic HLD: holding home fenofibrate Anxiety: home klonopin 1.5 bid prn, formulary alternative or pt's own vortioxetine Obesity: BMI 35 PPx: therapeutic INR FEN: NPO until surgery then regular diet, no MIVF Lines: PIV Consults: GenSurg Code: Full Dispo: patient requires inpatient eval and management at this time. Anticipate 2-3 days. Will be homegoing - Time Spent with Patient Total time spent is greater than 50% in coordination of care (as documented) at patient's floor/unit and/or counseling patient: Internal Medicine: Result - Labs CBC & Chem 7: 11/08/18 01:09 11/08/18 01:09 Labs: Short CBC 11/07/18 11/08/18 Range/Units 17:09 01:09 WBC 7.1 6.8 (4.3-11.1) K/mcL Hgb 10.9 L 10.5 L (12.9-16.9) g/dL Hct 36.9 L 36.4 L (37.5-50.1) % Plt Count 246 219 (140-400) K/mcL Neutrophils # 4.1 4.0 (1.6-8.9) K/mcL BMP 11/07/18 11/08/18 17:09 01:09 Sodium 136 137 Potassium 4.2 4.1 Chloride 108 H 107 Carbon Dioxide 22 L 24 BUN 16 15 Creatinine 1.37 H 1.47 H Glucose 115 H 137 H Calcium 9.0 8.4 L Liver Function 11/08/18 Range/Units 01:09 Total Bilirubin 0.4 (0.3-1.0) mg/dL AST 48 H (13-39) Units/L ALT 27 (7-52) Units/L Alkaline Phosphatase 46 (34-104) Units/L Albumin 3.7 (3.5-5.7) g/dL - ABG Interpretation ABG results: PT/INR, D-dimer PT 32.9 Seconds (9.4-12.1) H 11/08/18 01:09 - Impressions Impressions Lower Extremity CT 11/07/18 17:52 IMPRESSION: 1. Subcutaneous edema throughout the image soft tissues. Correlate clinically for cellulitis. There also superficial soft tissue irregularity along the posteromedial aspect of the lower extremity which may reflect soft tissue ulceration. Correlate clinically. 2. There is a rim enhancing complex collection which is closely associated with the medial head of the gastrocnemius which measures 1.8 x 2.3 x 2.6 cm. Findings highly suspicious for abscess given patient history. 3. No acute osseous abnormality identified. D/ / Gennaro Isaac MD / Gennaro Isaac MD Interpreting Provider: Gennaro Isaac MD Consult Discharge Plan - Plan Referrals: Ava Savage CNP [Primary Care Provider] -
--- NOTE | 2018-11-08 15:32 | Anesthesia Evaluation PreOp ---
Date of Encounter: 11/08/18 Time of Encounter: 15:30 - Past History Planned Operation: I & D Left Leg Cardiac History: HTN, Hyperlipidemia Pulmonary History: Former smoker (quit 4 years ago), Snore, ZULY Dx (uses CPAP) DIRECTOR SEARCH History: Denies Any Significant HX Other Medical History: Renal (H/O ARF with dialysis 06/2018), GERD Anesthesia History: No Prior Anesthetic Complications, Past Anesthesia Alcohol Use: rarely Drug use: none Medications and Allergies Brexpiprazole [Rexulti] 4 mg PO DAILY 11/08/18 [History] Cholecalciferol (D-3) [Vitamin D] 5,000 unit PO DAILY 11/08/18 [History] Ciprofloxacin HCl [Cipro] 500 mg PO BID 11/08/18 [History] Fenofibrate Nanocrystallized [Fenofibrate] 160 mg PO DAILY 11/08/18 [History] Multivitamin [One Daily] 1 tab PO DAILY 11/08/18 [History] Nebivolol [Bystolic] 5 mg PO DAILY 11/08/18 [History] Omeprazole [PriLOSEC] 40 mg PO DAILY 11/08/18 [History] Testosterone Cypionate [DEPO-Testosterone] 300 mg IM Q3W 11/08/18 [History] Vortioxetine Hydrobromide [Trintellix] 20 mg PO DAILY 11/08/18 [History] Warfarin Sodium 12.5 mg PO SUTUWEFRSA 11/08/18 [History] Warfarin Sodium 15 mg PO MOTH 11/08/18 [History] clonazePAM [Clonazepam] 1.5 mg PO BID 11/08/18 [History] metroNIDAZOLE [Flagyl] 500 mg PO TID 11/08/18 [History] Allergy/AdvReac Type Severity Reaction Status Date / Time trazodone AdvReac Shakiness Verified 11/07/18 15:43 - Meds/Allergy Pre-op Review Medications Reviewed: Yes Allergies Reviewed: Yes Beta Blockers on Current Med List: Yes If Beta Blockers taken, Date/Time (Last Dose taken): 11/08/2018 at 1348 Anesthesia Results - Labs 11/08/18 01:09 11/08/18 01:09 Anesthesia Exam Vital Signs/O2 Sat/Glucose, Most Recent Temp Pulse Resp BP Pulse Ox 98.0 F 79 14 146/89 95 11/08/18 14:11/08/18 14:19 11/08/18 14:19 11/08/18 14:19 11/08/18 14:19 Blood Glucose* 85 Height: 5'10"/1.78m Weight: 246 lbs/111.6 kg NPO (# of Hours): 8 Pain Scale: 6 (left leg) Pain Scale Used: Numeric (1 - 10) - HEENT Pupil (Motor): EOMI Mallampati: IV Teeth: Normal Oral Opening: Greater than 3 - DIRECTOR SEARCH LOC: Oriented DIRECTOR SEARCH Motor: Normal RUE, Normal LUE, Normal RLE, Normal Face, Deficit LLE DIRECTOR SEARCH Sensory: Normal: RUE, LUE, RLE, LLE, Face - Cardiac Rhythm: Regular Murmur: None - Pulmonary Breath Sounds: bilateral Clear Respiratory Effort: Symmetrical Anesthesia Assess/Plan ASA Score: 3 Level of consciousness: Cooperative, Oriented, Tranquil Anesthetic Plan: General Monitoring Plan: Standard Monitors Recovery Plan: PACU
[2018-11-08] MEDS ORDERED: Lidocaine -MPF 2% 2 ML VIAL ONE (15:40)
[2018-11-08] MEDS ORDERED: *HR* FentaNYL (PF) 100 MCG/2 ML VIAL ONE (15:40)
[2018-11-08] MEDS ORDERED: Ondansetron 4 MG/2 ML VIAL ONE (15:40)
[2018-11-08] MEDS ORDERED: Dexamethasone 4 MG/ML VIAL ONE (15:40)
[2018-11-08] MEDS ORDERED: *HR* Propofol 200 MG/20 ML VIAL IVP ONE ×2 (15:42→16:08)
[2018-11-08] MEDS ORDERED: *HR* Midazolam HCl 2 MG/2 ML VIAL ONE ×2 (16:08→16:21)
[2018-11-08] MEDS ORDERED: *HR* Succinylcholine 200 MG/10 ML VIAL IVP ONE (16:20)
--- NOTE | 2018-11-08 17:26 | Operative Note ---
Date of procedure: 11/08/18 Pre-op diagnosis: left lower leg abscess Procedure: Incision and drainage of left lower leg abscess Anesthesia: other (LMA) Local Anesthetics: 0.5% Sensorcaine HCL SubQ (cc) Surgeon: Benigno Kyle Was there an assistant manager quality management present: No Estimated blood loss (cc): 15 Specimen: cultures Condition: stable Disposition: PACU Procedure in Detail: This 43-year-old male was taken to the operating room and placed in the supine position. Left lower leg was prepped and draped in the usual sterile fashion. Left lower leg abscess that is associated with repaired laceration is opened is opened down to the gastrocnemius muscle. Sutures are removed and wound is really incised. The wound is explored. An infected hematoma is encountered. The hematoma is evacuated and drained. Copious irrigation is carried out in the wound cavity which is approximately 6 cm x 3 cm x 3 cm deep. After the wound was copiously irrigated 0.5% Marcaine is injected into the wound cavity and underlying muscle. A 10 round RICH drain is placed. The wound is closed over the drain using 3-0 nylon sutures. Sterile dressing is placed. Patient tolerated procedure well was taken to PACU in good condition.
[2018-11-08] MEDS ORDERED: Warfarin perPT PO PRN (18:00)
[2018-11-08] MEDS ORDERED: Sulfamethoxazole/Trimeth DS 1 EACH TABLET PO SCH (21:00)
[2018-11-08] MEDS: Sulfamethoxazole/Trimeth DS 1 EACH TABLET PO SCH (21:21)
--- NOTE | 2018-11-08 21:45 | Anesthesia Evaluation Post Op ---
Date of Encounter: 11/08/18 Time of Encounter: 17:45 - Vital Signs Vital Signs: Vital Signs Temp Pulse Resp BP Pulse Ox 11/08/18 17:44 97.4 F L 74 12 117/88 95 11/08/18 17:34 75 12 123/80 96 11/08/18 17:24 78 12 117/87 92 11/08/18 17:14 97.7 F 78 12 126/91 94 11/08/18 14:19 98.0 F 79 14 146/89 95 11/08/18 10:24 97.8 F 76 15 155/98 97 11/08/18 08:07 97 11/08/18 06:59 97.6 F 109 15 153/83 97 11/08/18 04:20 97.8 F 78 16 149/96 97 11/08/18 00:00 97 11/07/18 23:46 97.9 F 85 16 162/111 97 11/07/18 22:52 85 18 139/78 97 Intake and Output 11/08/18 11/08/18 11/08/18 07:59 15:59 23:59 Intake Total 520 / 520 2500 / 2500 Output Total 700 / 700 1400 / 1400 576 / 576 Balance -180 / -180 1100 / 1100 -576 / -576 Intake: IV Fluids 520 / 520 1600 / 1600 0.9 % Sodium Chloride 1,000 ML 1000 / 1000 @ 100 mls/hr IVC .Q10H [facility] Rx#: [id number] Zosyn 3.375 GM In Water for inj 20 / 20 . (sterile) 20 ML @ 400 mls/hr IVP ONCE ONE Rx#:[id number] Zosyn 3.375 GM In 0.9 % Sodium 100 / 100 Chloride (Mini-Bag +) 100 ML @ 25 mls/hr IVPB Q8HR [facility] Rx#: [id number] Vancocin 1,750 MG In 0.9 % 500 / 500 500 / 500 Sodium Chloride 500 ML @ 334. 014 mls/hr IVPB 0900 ONE Rx#: [id number] Oral 900 / 900 Output: Urine 700 / 700 1400 / 1400 575 / 575 Estimated Blood Loss Other: Meal BREAKFAST NPO npo Percent of Meal Consumed 0% Blood Glucose* 85 - Lungs Lungs: Clear Ascult./Percussion - Airway Airway: Non-obstructed - Cardiovascular Regular Rate - Mental Status Mental Status: Alert & Oriented, Answers Appropriately - Pain Pain Scale: 3 Pain Scale used: Numeric (1 - 10) - Nausea Vomiting Nausea Vomiting: Not Present - Hydration Hydration: Ice chips, Has not voided - Discharge PostOp Status: Transfer Patient to floor Anes Supervising Prov Stmt: Pt seen/evaluated, VSS and has met criteria for discharge to floor. - MD Kathie
[2018-11-08] MEDS: *HR* OxyCODONE Immed Rel 5 MG TABLET PO PRN (23:12)
[2018-11-09] MEDS: *HR* OxyCODONE Immed Rel 5 MG TABLET PO PRN (03:17)
[2018-11-09 04:37] LABS: Hematocrit 34.8 % (37.5-50.1); Hemoglobin 9.9 g/dL (12.9-16.9); Mean Corpuscular HGB Conc 28.4 g/dL (31.6-35.5); Mean Corpuscular Hemoglobin 21.8 pg (28.0-33.3); Mean Corpuscular Volume 76.5 fL (83.0-100.0); Mean Platelet Volume 11.4 fL (9.4-12.4); Platelet Count 308 K/mcL (140-400); Red Blood Count 4.55 M/mcL (4.19-5.50); Red Cell Distribution Width 18.4 % (11.5-14.5)
[2018-11-09 04:55] LABS: BUN/Creatinine Ratio 9 (6-26); Blood Urea Nitrogen 14 mg/dL (6-20); Calcium 8.6 mg/dL (8.6-10.3); Carbon Dioxide 27 mEq/L (23-29); Chloride 104 mEq/L (98-107); Glucose 127 mg/dL (70-105); Osmolality,Calculated 282 (280-300); Sodium 135 mEq/L (136-145); eGFR For Non-African Americans 50 (> 60)
[2018-11-09] MEDS: traMADol 50 MG TABLET PO PRN (05:47)
[2018-11-09] MEDS: Sulfamethoxazole/Trimeth DS 1 EACH TABLET PO SCH (08:38)
[2018-11-09] MEDS ORDERED: (Vortioxetine Hydrobromide [Trintellix] 20 MG) PO SCH (09:00)
--- NOTE | 2018-11-09 09:42 | Discharge Summary ---
- NOTES TO OUTPATIENT PROVIDER Notes to Outpatient Provider: L calf infected hematoma c/b cellulitis and abscess, underwent I&D on 11/08 and has drain in place, discharge on bactrim and augmentin, needs follow up with GenSurg in 1-2 weeks, his Warfarin was stopped, and he has pending A1c and iron labs (mild hyperglycemia while fasting as well as microcytic anemia) Orders not resulted at time of discharge: Pending orders 11/07/18 21:02 Culture,Wound [RM] Stat 11/08/18 01:09 Culture,Blood [BC] Stat 11/08/18 21:02 Culture,Anaerobic [RM] Stat 11/09/18 09:39 Hgb A1C Stat Iron Profile Stat Date of Encounter: 11/09/18 Time of Encounter: 09:40 - Discharge Diagnosis (1) Abscess of left lower extremity Priority: Primary Status: Acute (2) Infected surgical wound Priority: Primary Status: Acute Hospital course: Dear Doctors, I recently had the opportunity to care for this patient during their recent hospital stay at [facility]. 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 Pt stated that he dropped a piece of sheet metal on his leg at work about 1 week ago and sliced his calf open, at which time it was irrigated and stitched. However, the site became painful and draining pus over the previous two days. In the ED, CT showed rim-enhancing fluid collection likely abscess. In the hospital, patient taken for I&D by GenSurg Dr Escobar, who felt that patient likely developed hematoma which then became infected. A drain was placed and the area was stitched to promote healing. Coumadin will be discontinued. Patient started on Bactrim and Augmentin and will follow up in ~10 days with GenSurg. Follow up: GenSurg 10-14 days for drain removal Tests pending: iron labs (pt has microcytic anemia) and A1c (fasting BG 110- 130s) Med changes: - new Augmentin 875 bid and Bactrim DS 1 tab bid, last doses of each on 11/19 - new percocet 5/325, 1 tab q4h prn, #15, for post-surgical pain. Per [place] requirements for narcotic Rx's, [place] reviewed and face to face counseling about risks provided, pt last given [place] in 09/2018 for 2 day supply. 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 Please contact me with any questions or concerns regarding their hospital stay. Sincerely, Mio Rothman MD - Time Spent with Patient Total time spent providing and/or coordinating discharge services: - Discharge Medications Prescriptions: New Amoxicillin/Clavulanate [Augmentin] 875 mg PO BID #18 tablet OxyCODONE/APAP 5/325 [Percocet 5/325 MG] 1 each PO Q4HR PRN 3 Days #15 tablet PRN Reason: Pain Sulfamethoxazole/Trimeth DS [Bactrim Ds] 1 each PO BID #18 tablet Continue Cholecalciferol (D-3) [Vitamin D] 5,000 unit PO DAILY Testosterone Cypionate [Depo-Testosterone] 300 mg IM Q3W Vortioxetine Hydrobromide [Trintellix] 20 mg PO DAILY Omeprazole [PriLOSEC] 40 mg PO DAILY Fenofibrate Nanocrystallized [Fenofibrate] 160 mg PO DAILY Brexpiprazole [Rexulti] 4 mg PO DAILY clonazePAM [Clonazepam] 1.5 mg PO BID Nebivolol [Bystolic] 5 mg PO DAILY Multivitamin [One Daily] 1 tab PO DAILY Discontinued Warfarin Sodium 12.5 mg PO SUTUWEFRSA Warfarin Sodium 15 mg PO MOTH Ciprofloxacin HCl [Cipro] 500 mg PO BID metroNIDAZOLE [Flagyl] 500 mg PO TID Home Medications: Brexpiprazole [Rexulti] 4 mg PO DAILY 11/08/18 [History] Cholecalciferol (D-3) [Vitamin D] 5,000 unit PO DAILY 11/08/18 [History] Fenofibrate Nanocrystallized [Fenofibrate] 160 mg PO DAILY 11/08/18 [History] Multivitamin [One Daily] 1 tab PO DAILY 11/08/18 [History] Nebivolol [Bystolic] 5 mg PO DAILY 11/08/18 [History] Omeprazole [PriLOSEC] 40 mg PO DAILY 11/08/18 [History] Testosterone Cypionate [Depo-Testosterone] 300 mg IM Q3W 11/08/18 [History] Vortioxetine Hydrobromide [Trintellix] 20 mg PO DAILY 11/08/18 [History] clonazePAM [Clonazepam] 1.5 mg PO BID 11/08/18 [History] Amoxicillin/Clavulanate [Augmentin] 875 mg PO BID #18 tablet 11/09/18 [Rx] OxyCODONE/APAP 5/325 [Percocet 5/325 MG] 1 each PO Q4HR PRN 3 Days #15 tablet 11/09/18 [Rx] Sulfamethoxazole/Trimeth DS [Bactrim Ds] 1 each PO BID #18 tablet 11/09/18 [Rx] Allergies/Adverse Reactions: Allergy/AdvReac Type Severity Reaction Status Date / Time trazodone AdvReac Shakiness Verified 11/07/18 15:43 Date of admission: 11/07/18 23:57 Primary care physician: Ava Savage CNP - Constitutional Vitals: Temp Pulse Resp BP Pulse Ox 97.9 F 75 16 131/85 93 11/09/18 07:01 11/09/18 07:01 11/09/18 07:01 11/09/18 07:01 11/09/18 07:01 General appearance: Present: cooperative, A&O X 3, pleasant, no acute distress, answers questions appropriately Exam: General: NAD, good eye contact, well appearing Thoracic: Normal breath sounds b/l, no wheezing or crackles Cardio: Normal S1 and S2, regular rate and rhythm, no murmurs Abdomen: Soft, nontender, nondistended, obese Extremities: Warm, well perfused. DP pulses 2+ b/l. Does have edema LLE distal to site of laceration Skin: L medial calf laceration healing, c/d/i, with drain with minimal red blood Neuro: Awake, fully oriented. Speech fluent - Patient Status Disposition: Home, Self-Care Condition: Fair Functional capacity at discharge: independent ambulation Overall status at discharge: patient is progressing back to baseline - Discharge Instructions Follow Up With: Ava Savage, JOSE CARLOS [Primary Care Provider] - Benigno Paz [Partnered Physician] - (needs appointment for abscess drain removal in 10 days) - Diet and Activity Activity: increase activity as tolerated Diet: advance to your usual diet
[2018-11-09 09:57] LABS: % Iron Saturation 3 % (20-55); Iron 17 mcg/dL (65-175); Transferrin 349 mg/dL (203-362)
[2018-11-09 10:17] LABS: Estimated Average Glucose 126 mg/dl
[2018-11-09 10:44] VITALS: BP 129/78
[2018-11-09] MEDS ORDERED: Aminoglycoside Consult 1 EACH MC ONE (12:35)
== END 2018-11-09 12:36 | disposition home or self-care (01) | DRG 383 ==
LOC: EMEROOARM 16:43 → 3ANU 16:43 → SUATTDRO 23:57
PROVIDERS: ADMIT Pediatrics; ATTEND Internal Medicine